=== PATIENT | female | born 1995 | race Caucasian/White ===

== ENCOUNTER 2019-02-23 19:52 | Emergency (ER) | payer BC, SELFPAY ==
[2019-02-23 20:08] VITALS: BP 89/63; PULSE 130; RESP 24; TEMP 37.1; O2SAT 98
[2019-02-23] MEDS: LORazepam 1 MG TAB PO (20:56)
[2019-02-23 21:06] LABS: Bilirubin Negative (Negative); Blood Trace-lysed (Negative); Clarity Clear (Clear); Glucose Negative (Negative); Ketones 15 mg/dL (Negative); Leukocyte Esterase Negative (Negative); Nitrite Negative (Negative); Urobilinogen 0.2 EU/dL (Up TO 0.2)
[2019-02-23 21:15] LABS: Bacteria Negative HPF (Negative); C & S Indicated? No; Casts Negative LPF (Negative); Crystals Negative HPF (Negative); Epithelial Cells Few HPF (Negative); Mucus Negative (Negative); Other Cells Negative (Negative)
[2019-02-23] MEDS: Ketorolac 15 MG/ML VIAL IVP (22:13)
[2019-02-23] MEDS: Normal Saline 1,000 ML 1000 ML IV (22:13)
[2019-02-23 22:21] LABS: Abs Immature Grans 0.03 k/cumm (0.0-0.09); Absolute Basophil Count 0.01 k/cumm (0.0-0.2); Absolute Monocyte Count 0.77 k/cumm (0.11-0.7); Absolute Neutrophil Count 11.17 k/cumm (1.2-6.7); Basophils % 0.1; HCT 33.5 % (36.0-46.0); HGB 11.9 g/dL (12.0-15.5); Immature Grans % 0.2; Lymphocytes % 4.8; Mean Corp. HGB Concentration 35.5 g/dL (32.0-36.0); Mean Corpuscular Hemoglobin 30.4 pg (27.0-33.0); Mean Corpuscular Volume 85.5 fL (80-95); Monocytes % 6.1; Neutrophils % 88.8; Platelet Count 207 x1000/uL (130-400); RBC 3.92 m/cumm (4.00-5.20); RBC Distribution Width 11.5 % (11.7-14.6); White Blood Cell Count 12.58 k/cumm (4.4-10.8)
--- NOTE | 2019-02-23 22:21 | ED.GENADUL_ITS ---
Discharge Plan Disposition Patient Disposition: HOME Condition: Good Discharge Details Chief Complaint: FlankPain Clinical Impression: Urolithiasis Primary Care Provider: Tika Aviles ED Provider: Marco Garrido Home Meds and New Rx's Prescriptions: New tamsulosin [Flomax] 0.4 mg capsule 0.4 mg PO DAILY Qty: 7 RF: 0 No Action ranitidine HCl [Zantac] 150 mg Tablet 150 mg PO DAILY RF: 0 guanfacine 1 mg Tablet 0.5 mg PO DAILY PRN PRNRF: 0 sertraline [Zoloft] 25 mg Tablet 25 mg PO DAILY RF: 0 ondansetron 4 mg Tablet,Disintegrating 4 mg PO Q6H RF: 0 Discharge Instructions Instructions: Kidney Stones (ED) Additional Instructions: You have a kidney stone, and it is at the very edge of the ureter, and will likely pass soon. Please use the strainer to collect the stone, your family doc tor can send it for evaluation afterwards. Please take the Flomax once every 24 hours as directed. If you have complete resolution of your pain stop taking the Flomax. Please take up to 500 mg of Tylenol every 6 hours and 400 mg of ibuprofen every 6 hours for pain. If you notice any worsening of your symptoms, or any new symptoms such as vomiting, diarrhea, fever, chills, shortness of breath, chest pain, numbness, weakness, or fainting , please return immediately to the emergency department for reevaluation. Please follow up with your primary care provider as soon as possible for reassessment and reevaluation. As always, it was a pleasure participating in your medical care today. Referrals: Tika Aviles [Primary Care Provider] - Medical Decision Making This is a pleasant 23-year-old female who presents today for evaluation of left-sided flank pain for the last 3 days with some mild associated urinary discomfort. She also unfortunately has a medical history of debilitating anxiety in the medical environment per the patient herself. She denies fever or chills, she denies any hematuria but unfortunately is on her period. She denies any pelvic pain or tenderness, she denies any history of STD or vaginal discharge. Physical exam demonstrates very mild left-sided upper flank tenderness, no lower abdominal tenderness, no pelvic tenderness. Signs and symptoms at this time are concerning for UTI, pyelonephritis, kidney stone. Signs and symptoms appear inconsistent at this time clinically with torsion, ov ana cyst, pelvic pathology. Initial urinalysis is unremarkable, which does elicit concern for other underlying pathology. We will get a CT scan for further assessment of potential renal stone. Currently the patient states that she has no pain whatsoever. She appears comfortable. 12:[address] scan results demonstrate evidence of a obstructing 3 mm calculus at the left ureter. No evidence of pyelonephritis, vital signs stable, laboratory work-up shows mild white count of 12, no bandemia. No fever. Urinalysis is negative for leuk esterase, nitrites, shows no evidence of infection. Renal function stable. Patient has been rehydrated, and has complete resolution of her pain and symptomatology after Toradol. She feels very well. At this time the patient signs and symptoms are clinically consistent with urolithiasis, and inconsistent with appendicitis, torsion, or other acute intra-abdominal pathology. As the kidney stone is at the distal ureter I feel he would likely pass. She is a candidate for Flomax. We will give the first dose here and a prescription for home use. As her pain is controlled now I feel that she can be safely discharged with NSAIDs for pain management. If you notice any worsening of your symptoms, or any new symptoms such as vomiting, diarrhea, fever, chills, shortness of breath, chest pain, numbness, weakness, or fainting , please return immediately to the emergency department for reevaluation. Please follow up with your primary care provider as soon as possible for reassessment and reevaluation. As always, it was a pleasure participating in your medical care today. FINDINGS: Liver: Normal. No mass. Gallbladder and bile ducts: Normal. No calcified stones. No ductal dilation. Pancreas: Normal. No ductal dilation. Spleen: Normal. No splenomegaly. Adrenals: Normal. No mass. Kidneys and ureters: Obstructing, 3 mm calculus in left ureter at ureterovesical junction. Mild left hydronephrosis and hydroureter. Lesion too small to characterize in lower pole, right kidney. Stomach and bowel: Unremarkable. No obstruction. No mucosal thickening. Appendix: No evidence of appendicitis. Intraperitoneal space: Unremarkable. No free air. No significant fluid collection. Vasculature: Unremarkable. No abdominal aortic aneurysm. Lymph nodes: Unremarkable. No enlarged lymph nodes. Bladder: Unremarkable as visualized. Reproductive: Unremarkable as visualized. Bones/joints: Unremarkable. No acute fracture. Soft tissues: Unremarkable. IMPRESSION: Obstructing calculus in distal left ureter. Thank you for allowing us to participate in the care of your patient. Dictated and Authenticated by: Jonel Zhang DO 02/24/2019 12:31 AM Eastern Time ([place] & [place]) HPI General Date/Time Provider Initiated Documentation: 02/23/19 20:33 . HPI Narrative: This is a 23-year-old female with a past medical history of debilitat ing anxiety in medical settings but no other significant past medical history who presents today for evaluation of left flank pain. Patient states that for the last 3 days she has had mild pain in her left flank, no pelvic pain, no suprapubic pain. She does have mild pain with urination, but she denies any fever or chills. She is currently on her. However aside for minimal cramps she denies any pain whatsoever in the pelvic region. She states that her period is actually starting to complete at this point. She has not taken any Tylenol or Motrin. She denies any history of kidney stones. She denies any history of nausea, vomiting, diarrhea, chest pain, or trauma. Additionally she denies any history of STDs, or vaginal discharge. She has no other complaints at this time. No other modifying factors. Related Data Home Medications Medication Instructions Recorded Confirmed guanfacine 0.5 mg PO DAILY PRN PRN 02/23/19 02/23/19 ondansetron 4 mg PO Q6H 02/23/19 02/23/19 ranitidine HCl [Zantac] 150 mg PO DAILY 02/23/19 02/23/19 sertraline [Zoloft] 25 mg PO DAILY 02/23/19 02/23/19 tamsulosin [Flomax] 0.4 mg PO DAILY #7 cap 02/24/19 Previous Rx's Medication Instructions Recorded tamsulosin [Flomax] 0.4 mg PO DAILY #7 cap 02/24/19 Allergies Allergy/AdvReac Type Severity Reaction Status Date / Time No Known Allergies Allergy Unverified 02/23/19 20:17 General Stated Complaint: FlankPain ROMAN: 3 Review of Systems Review of Systems ROS Unobtainable: All systems reviewed & are unremarkable except as noted in HPI and below PFSH Social History Smoking/Tobacco Use Status: Never Alcohol Intake: never Substance use type: does not use Do you feel safe at home: Yes Do you feel safe in your relationship?: Yes Exam Narrative Exam Narrative: 1.Const: Well-nourished, Well-developed, appearing stated age 2.Eyes: PERRL, no conjunctival injection, and symmetrical lids. 3.ENT: Atraumatic external nose and ears. Moist MM. Neck: Symmetric, trachea m idline, No thyromegaly. 4.CVS: +S1/S2, No murmurs or gallops. Peripheral pulses 2+ and equal in all extremities. Brisk capillary refill in all extremities. 5.RESP: Unlabored respiratory effort. Clear to auscultation bilaterally. No wheezes rales or rhonchi 6.GI: Soft, Nontender/Nondistended, No hepatosplenomegaly. No guarding or rebound. Mild left-sided flank CVA tenderness. Negative obturator and psoas sign, no pain at McBurney's point, negative Chakraborty sign, no lower abdominal pain, suprapubic pain, or pelvic pain on palpation. Negative heel strike test. 7.MSK: Normocephalic/Atraumatic, Extremities w/o deformity or ttp No cyanosis or clubbing, Normal movement of all extremities 8.Skin: Warm, Dry. No rashes or lesions. 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 Sensation grossly intact, no focal neurologic deficits. 10.Psych: (AAO) x3. Appropriate mood and affect Course Vital Signs Vital signs: Vital Signs Temperature 37.1 C 02/23/19 20:08 Pulse 130 H 02/23/19 20:08 Respiratory Rate 24 02/23/19 20:08 Blood Pressure 89/63 L 02/23/19 20:08 Pulse Oximetry 98 02/23/19 20:08 Temperature 37.1 C 02/23/19 20:08 Temperature Source Skin 02/23/19 20:08 Pulse 130 H 02/23/19 20:08 Respiratory Rate 24 02/23/19 20:08 Respiratory Effort Non-Labored 02/23/19 20:19 Blood Pressure 89/63 L 02/23/19 20:08 Blood Pressure Position Sitting 02/23/19 20:08 Pulse Oximetry 98 02/23/19 20:08 Oxygen Delivery Method Room Air 02/23/19 20:08 Oxygen Flow Rate 0 02/23/19 20:08 Pain Level 10 02/23/19 20:19 Lab/Test Results Lab/Test Results: Laboratory Tests Range/Units 02/23/19 21:03 Urine Color (Yellow) Yellow Urine Clarity (Clear) Clear Urine pH (5-8) 7.0 Ur Specific [place] (1.005-1.025) 1.020 Urine Protein (Negative) mg/dL Trace H Urine Ketones (Negative) mg/dL 15 H Urine Blood (Negative) Trace-lysed H Urine Nitrite (Negative) Negative Urine Bilirubin (Negative) Negative Urine Urobilinogen (Up TO 0.2) EU/dL 0.2 Ur Leukocyte Esterase (Negative) Negative Urine RBC (0-2) 10-20 H Urine WBC (0-5) HPF 3-5 Ur Epithelial Cells (Negative) HPF Few Urine Crystals (Negative) HPF Negative Urine Bacteria (Negative) HPF Negative Urine Casts (Negative) LPF Negative Urine Mucus (Negative) Negative Urine Other (Negative) Negative Ur Culture Indicated? No Urine Glucose (Negative) mg/dL Negative POC- Test(urine) Negative
[2019-02-23 22:33] LABS: Lactate 2.5 mmol/L (0.6-1.4)
[2019-02-23 22:52] LABS: ALT 18 U/L (14-59); AST 15 U/L (15-37); Albumin 4.1 g/dL (3.4-5.0); Alkaline Phosphatase 55 U/L (46-116); Anion Gap 14.9 mmol/L (3-11); BUN 20 mg/dL (7-18); Bilirubin, Total 0.5 mg/dL (0.2-1.0); CO2 21.1 mmol/L (21.0-32.0); CREATININE 0.96 mg/dL (0.55-1.02); Chloride 102 mmol/L (98-107); Glucose 127 mg/dL (70-100); Potassium 3.7 mmol/L (3.5-5.1); Sodium 138 mmol/L (136-145); Total Protein 7.8 g/dL (6.4-8.2)
--- NOTE | 2019-02-23 23:19 | DI.CT_ITS ---
EXAM: CT ABDOMEN PELVIS W CLINICAL HISTORY: left flank pain, eval stone vs acute process. TECHNIQUE: Imaging Protocol: Axial computed tomography images with coronal and sagittal reformatted images were created and reviewed CONTRAST MATERIAL: Intravenous: Omnipaque 350 Contrast volume:80 mL contrast route:IV - Oral: No COMPARISON: No exams were available for comparison FINDINGS: ABDOMEN: Lung Bases: Normal where visualized. Liver: Normal density. No measurable mass. Gallbladder and biliary tract: No radiodense calculus or dilation. Pancreas: Normal density, no abnormal calcifications or inflammatory process. Spleen: Normal. Kidneys: Normal size, contour and axis. There is a 3 mm calculus in the distal left ureter at the ure teral vesicle junction. There is mild hydronephrosis and hydroureter present. There is a 0.5 [address] nd hypodense cortical lesion in the lower pole of the right kidney. It is too small for further irving acterization. This likely reflects a cyst. No masses seen. Adrenal glands: No masses seen. Abdominal Aorta: Abdominal portion non-dilated. PELVIS: Bladder: Symmetric distention, no gross wall thickening. Bowel: No obstruction or bowel wall thickening. The appendix is normal in size without evidence of ad jacent mesenteric fat stranding or adjacent fluid collection. Peritoneal cavity: No ascites, collection or mesenteric inflammatory response. Bones: Within normal limits. Impression: 3 mm stone in the distal left ureter at the ureteral pelvic junction causing mild hydronephrosis. DATA REPOSITORY: All CT scans at this facility are submitted to the National Radiology Data Registry (NRDR) Dose Index Registry (DIR) with the [employer] (A[employer]). RADIATION OPTIMIZATION: All CT scans at this facility use at least one of these dose optimization te chniques: automated exposure control; mA and/or kV adjustment per patient size (includes targeted exa ms where dose is matched to clinical indication); or iterative reconstruction.
[2019-02-23] MEDS: Omnipaque 350 MG/ML 100 ML BTL IJ (23:29)
[2019-02-23 23:33] VITALS: PULSE 88; RESP 16; O2SAT 98
[2019-02-23 23:49] LABS: Lactate 1.4 mmol/L (0.6-1.4)
== END 2019-02-24 01:17 | disposition home or self-care (01) ==
PROVIDERS: Emergency Provider Student in an Organized Health Care Education/Training Program; PCP Nurse Practitioner Family
DX: N20.1 Calculus of ureter (principal)
CPT/HCPCS: 36415; 80053; 81025; 96361; 96374; 96376; 99285; 74177; 81003; 81015; 83605; 85025; 99284; J1885; J3490

== ENCOUNTER 2019-10-24 13:05 | Outpatient (CLI) | payer BC, SELFPAY ==
--- NOTE | 2019-10-24 | DI.RAD_ITS ---
EXAM: XR ANKLE RT COMPLETE CLINICAL HISTORY: LATERAL MALLEOLUS AND BONY POINT TENDERNESS, ? INVERSION INJURY. TECHNIQUE: 2D digital imaging was performed. COMPARISON: No exams were available for comparison FINDINGS: BONES: Normally mineralized. No evidence of fracture. No talar dome defect. JOINTS: The ankle mortise is normally aligned. SOFT TISSUE: Mild lateral soft tissue swelling. IMPRESSION: Unremarkable radiographs of the right ankle. DATA REPOSITORY: RADIATION DOSE DELIVERED:
== END 2019-10-24 13:25 ==
PROVIDERS: PCP Nurse Practitioner Family; Visit Provider Pediatrics
DX: M25.571 Pain in right ankle and joints of right foot (principal); M79.89 Other specified soft tissue disorders
CPT/HCPCS: 73610

== ENCOUNTER 2022-01-21 21:37 | Emergency (ER) | payer BC, SELFPAY ==
[2022-01-21 21:56] VITALS: BP 122/64; PULSE 113; RESP 16; TEMP 36.4; O2SAT 100
[2022-01-21 22:20] LABS: Bilirubin Negative (Negative); Blood Trace-intact (Negative); Clarity Clear (Clear); Glucose Negative (Negative); Ketones Negative (Negative); Leukocyte Esterase Negative (Negative); Nitrite Negative (Negative); Urobilinogen 0.2 EU/dL (Up TO 0.2)
[2022-01-21 22:27] LABS: Bacteria Few HPF (Negative); Crystals Negative HPF (Negative); Epithelial Cells Moderate HPF (Negative)
[2022-01-21 22:28] LABS: C & S Indicated? Yes; Mucus Negative (Negative)
[2022-01-21] MEDS: Mylanta Suspension 30 ML CUP PO (22:30)
[2022-01-21] MEDS: LORazepam 1 MG TAB PO (22:30)
--- NOTE | 2022-01-21 23:19 | ED.GENADUL_ITS ---
Discharge Plan Disposition Patient Disposition: HOME Condition: Stable Discharge Details Clinical Impression: Acute epigastric pain Primary Care Provider: Tika Aviles ED Provider: Ania Cramer Home Meds and New Rx's Prescriptions: New sucralfate [Carafate] 1 gram tablet 1 g PO BID Qty: 60 0RF Continued guanfacine 1 mg Tablet 0.5 mg PO DAILY PRN PRN sertraline [Zoloft] 25 mg Tablet 50 mg PO DAILY ondansetron 4 mg Tablet,Disintegrating 4 mg PO Q6H famotidine 20 mg Tablet 20 mg PO BID Discharge Instructions Instructions: Diet for Stomach Ulcers and Gastritis (ED), Abdominal Pain (ED) Additional Instructions: pepcid prilosec carafate stay away from fatty foods, spicy foods, caffeinated bevarages Follow-up for ultrasound I did recommend performing blood work, you have declined, should he have persistent pain I do recommend outpatient laboratory assessment Return with worsening pain, fever, chills, or should he have new or worsening complaints Stand Alone Forms: Work Release Discharge Data Discharge Date/Time-TO BE ENTERED AT DEPARTURE: 01/21/22 23:49 Medical Decision Making Patient have declined labs, she is aware that we cannot fully assess her without this She is leaving prior to her complete assessment She is agreeable to an outpatient ultrasound, I do not feel at this time clinically that she needs CT scan and that the risk of ordering CT with radiation outweighs benefit She is alert, oriented, capacity, she is discharged home in the care of her father She is given food options and work note Medical Records Medical records reviewed: Yes I reviewed the patient's medical records. Lab Data Lab results reviewed: Yes I reviewed the patient's lab results. HPI General Date/Time Provider Initiated Documentation: 01/21/22 22:00 . HPI Narrative: This 26-year-old female presents with reports of right upper quadrant and epigastric pain over the course of several days. She states she had some nausea, she vomited once on Tuesday but does not have any current nausea. She states that every time she has been consuming food which predominantly has been fatty food diet she does develop worsening pain. She denies any current discomfort. She denies any radiation. She denies any alcohol use. She denies any chance of . She denies any fever or chills. She states this is a kidney stones and states this pain is different. She has any blood in urine or dysuria. She had her. Denies any known additional exacerbating factors. Related Data Home Medications Medication Instructions Recorded Confirmed guanfacine 1 mg tablet 0.5 mg PO DAILY PRN PRN 02/23/19 01/22/22 ondansetron 4 mg disintegrating 4 mg PO Q6H 02/23/19 01/22/22 tablet sertraline 25 mg tablet (Zoloft) 50 mg PO DAILY 02/23/19 01/22/22 famotidine 20 mg tablet 20 mg PO BID 01/21/22 01/22/22 sucralfate 1 gram tablet (Carafate) 1 g PO BID #60 tabs 01/21/22 01/22/22 Previous Rx's Medication Instructions Recorded sucralfate 1 gram tablet (Carafate) 1 g PO BID #60 tabs 01/21/22 Allergies Allergy/AdvReac Type Severity Reaction Status Date / Time lactose intolerant AdvReac Uncoded 01/22/22 10:01 General Stated Complaint: Abd Prob ROMAN: 3 Review of Systems All systems reviewed & are unremarkable except as noted in HPI and below PFSH All Active Problems (Updated 01/22/22 @ 12:45 by Kirill Li NP) Acute epigastric pain (Acute) Ovarian cyst (Acute) Abdominal pain (Acute) Social History Smoking/Tobacco Use Status: Never Smoking risk assessment performed?: Yes Alcohol Intake: current Alcohol Intake frequency: a few times a month Substance use type: does not use Do you feel safe at home: Yes Do you feel safe in your relationship?: Yes Exam Const General: cooperative, comfortable and no acute distress Eyes Sclera: sclerae normal Resp Effort & Inspection: normal respiratory effort Auscultation: clear to auscultation bilaterally Cardio Rate: regular rate Rhythm: regular rhythm GI Inspection: normal to inspection Percussion: normal to percussion Other: No CVA tenderness, no right upper quadrant pain Skin General skin exam: no rashes or lesions noted Neuro General: patient alert and patient oriented x3 Course Vital Signs Vital signs: Vital Signs Temperature 36.4 C 01/21/22 21:56 Pulse 113 H 01/21/22 21:56 Respiratory Rate 16 01/21/22 21:56 Blood Pressure 122/64 01/21/22 21:56 Pulse Oximetry 100 01/21/22 21:56 Temperature 36.4 C 01/21/22 21:56 Temperature Source Temporal Artery Scan 01/21/22 21:56 Pulse 113 H 01/21/22 21:56 Respiratory Rate 16 01/21/22 21:56 Respiratory Effort 01/21/22 21:56 Blood Pressure 122/64 01/21/22 21:56 Blood Pressure Position Sitting 01/21/22 21:56 Pulse Oximetry 100 01/21/22 21:56 Oxygen Delivery Method Room Air 01/21/22 21:56 Oxygen Flow Rate 0 01/21/22 21:56 Pain Level 4 01/21/22 21:56 Lab/Test Results Lab/Test Results: 01/21/22 22:05 Urine - Reflex from Ua Urine Culture - Pending Laboratory Tests Range/Units 01/21/22 22:05 Urine Color (Yellow) Yellow Urine Clarity (Clear) Clear Urine pH (5-8) 6.0 Ur Specific [place] (1.005-1.025) 1.020 Urine Protein (Negative) mg/dL Negative Urine Ketones (Negative) mg/dL Negative Urine Blood (Negative) Trace-intact H Urine Nitrite (Negative) Negative Urine Bilirubin (Negative) Negative Urine Urobilinogen (Up TO 0.2) EU/dL 0.2 Ur Leukocyte Esterase (Negative) Negative Urine RBC (0-2) HPF 3-5 H Urine WBC (0-5) HPF 5-10 Ur Epithelial Cells (Negative) HPF Moderate Urine Crystals (Negative) HPF Negative Urine Bacteria (Negative) HPF Few Urine Mucus (Negative) Negative Ur Culture Indicated? Yes Urine Glucose (Negative) mg/dL Negative POC- Test(urine) Negative
--- NOTE | 2022-01-21 23:51 | NUR.NOTE ---
declines blood work and IV. wants to come back for an ultrasound in the am.Nursing Note:
== END 2022-01-21 23:49 | disposition home or self-care (01) ==
PROVIDERS: Emergency Provider Physician Assistant; PCP Nurse Practitioner Family
DX: R10.13 Epigastric pain (principal); R10.11 Right upper quadrant pain; R11.0 Nausea
CPT/HCPCS: 36415; 80053; 81025; 99283; 81003; 81015; 85025; 87086; 99284

== ENCOUNTER 2022-01-22 09:57 | Emergency (ER) | payer BC, SELFPAY ==
--- NOTE | 2022-01-22 10:04 | W.ED.GENAD ---
Discharge Plan Disposition Patient Disposition: HOME Condition: Improving Discharge Details Clinical Impression: Ovarian cyst, Abdominal pain Primary Care Provider: Tika Aviles ED Provider: Kirill Li Home Meds and New Rx's Prescriptions: Continued guanfacine 1 mg Tablet 0.5 mg PO DAILY PRN PRN sertraline [Zoloft] 25 mg Tablet 50 mg PO DAILY ondansetron 4 mg Tablet,Disintegrating 4 mg PO Q6H famotidine 20 mg Tablet 20 mg PO BID sucralfate [Carafate] 1 gram tablet 1 g PO BID Qty: 60 0RF Discharge Instructions Instructions: Ovarian Cyst (ED), Abdominal Pain (ED) Additional Instructions: If you have any new or significant worsening of symptoms feel free to return to the emergency department for reassessment. We did note an ovarian cyst. Follow-up has been placed for an appointment with [facility]. You may continue to take the prescribed meds given to last night during your emergency department visit along with [id number] pain medication as needed for any further discomfort Referrals: [facility] [Provider Group] (Call the office on Tuesday afternoon for arrangement of follow-up appointment.) Discharge Data Discharge Date/Time-TO BE ENTERED AT DEPARTURE: 01/22/22 12:50 Medical Decision Making Patient presenting to the emergency department for chief complaint of abdominal pain. Patient was seen yesterday evening and outpatient ultrasound was ordered the patient did not perform any labs at that time. Ultrasound results were reviewed and are unremarkable. On reassessment of patient's abdomen she did have tenderness to the right lower quadrant and right CVA tenderness. Patient does state history of kidney stones. On review of yesterday's labs patient did have blood in her urine. Discussed with patient further work-up which she was agreeable to at this time. Patient still cannot tolerate needles and is requesting to perform as much work-up as possible without blood work which I did inform her of risk versus benefit of possible other diagnoses that cannot be made without blood work. We will move forward with urinalysis and CT scan and hold on labs pending results. Reviewed urinalysis which continues to show blood and patient is not . CT imaging shows no appendicitis, no kidney stone, but does show a 1 cm ovarian cyst in the right lower quadrant. This may be the cause of patient's discomfort so we will refer patient to [facility] for recheck. Upon reassessment of patient to discuss results patient states that she is now pain-free and feeling better. After discussion of diagnosis and plan of care patient has no further needs, questions, or concerns and states clear understanding to return to the emergency department for any worsening symptoms. This documentation was generated using [employer] system, please disregard any oddities of phrase or misspellings. Medical Records Medical records reviewed: Yes I reviewed the patient's medical records. Imaging Data Radiologic Study: Imaging: Ultrasound Radiologist's impression: FINDINGS: There is no ascites evident. LIVER: There are no hepatic lesions evident nor dilatation of intrahepatic ducts. GALLBLADDER/BILIARY: There are no gallstones. No gallbladder wall edema nor pericholecystic fluid. The common hepatic duct isnot dilated, measuring 2mm at the level of tsering hepatis. PANCREAS: There is no evidence of pancreatic mass nor dilatation of the pancreatic duct. RIGHT KIDNEY:No evidence of solid mass, calculus, nor hydronephrosis. No cortical cysts evident. ABDOMINAL AORTA AND IVC: Visualized portions exhibit normal caliber. IMPRESSION: 1. No evidence of cholelithiasis nor dilatation of the biliary tree. 2. No other significant ultrasound findings in the right upper quadrant. 3. There is no ascites. Radiologic Study #2: Attestation: I personally reviewed and interpreted this imaging study as follows: Imaging: CT Scan Radiologist's impression: FINDINGS: VISUALIZED LUNG BASES: No nodules nor pleural effusions evident. ABDOMEN: There is no ascites. LIVER: There are no obvious focal hepatic lesions evident of this noninfused study. GALLBLADDER/BILIARY: No obvious gallbladder pathology. CBD is not dilated. PANCREAS: No evidence of pancreatic mass nor dilatation of the pancreatic duct. SPLEEN: Spleen is not enlarged. No obvious intrasplenic lesions. ADRENALS: There are no significant adrenal masses. KIDNEYS:Both kidneys appear unremarkable. No radiopaque calculi within the kidneys and no hydronephrosis nor hydroureter. No significant renal masses. ABDOMINAL AORTA: Abdominal aorta is not enlarged. LYMPH NODES: There is no retroperitoneal nor paraaortic adenopathy. ABDOMINAL WALL: No evidence of significant anterior abdominal wall nor inguinal hernia. GI: There is no evidence of bowel obstruction, free air, nor abscess. PELVIS: LYMPH NODES: There is no intrapelvic nor inguinal adenopathy. GI: No evidence of appendicitis.No evidence of sigmoid diverticulitis. URINARY BLADDER: No calculi nor obvious masses evident REPRODUCTIVE: Follicular cyst in the right ovary noted which measures 1 cm. Slightly smaller follicular cysts noted in the left ovary. No large ovarian masses. No extraovarian adnexal masses and no free fluid in the pelvis. OSSEOUS: No significant osseous lesions. SI joints unremarkable. No fractures. IMPRESSION: 1. No evidence of radiopaque renal calculi nor obstruction of the urinary tracts. 2. No evidence of acute appendicitis. No diverticulitis. 3. No ascites. HPI General Mode of arrival: ambulatory. Date/Time Provider Initiated Documentation: 01/22/22 09:58. Limitations to Documentation: no limitations. Information obtained by: patient and RN notes reviewed. History of Present Illness 26 year old F presents to the emergency department with the chief complaint of Here for results of gallbladder ultrasound, abdominal pain, described as moderate, with intensity rated at 4. Quality is described as aching, and is localized to the abdomen and right. Patient reports radiation to back. Patient started experiencing this day(s) (5) and it has been constant. No relieving factors improve symptom(s), Eating worsens symptoms . Patient notes no other symptoms.. Patient did receive the following treatments prior to arrival, NSAID Related Data Home Medications Medication Instructions Recorded Confirmed guanfacine 1 mg tablet 0.5 mg PO DAILY PRN PRN 02/23/19 01/22/22 ondansetron 4 mg disintegrating 4 mg PO Q6H 02/23/19 01/22/22 tablet sertraline 25 mg tablet (Zoloft) 50 mg PO DAILY 02/23/19 01/22/22 famotidine 20 mg tablet 20 mg PO BID 01/21/22 01/22/22 sucralfate 1 gram tablet (Carafate) 1 g PO BID #60 tabs 01/21/22 01/22/22 Previous Rx's Medication Instructions Recorded sucralfate 1 gram tablet (Carafate) 1 g PO BID #60 tabs 01/21/22 Allergies Allergy/AdvReac Type Severity Reaction Status Date / Time lactose intolerant AdvReac Uncoded 01/22/22 10:01 General Stated Complaint: Recheck ROMAN: 5 Review of Systems Constitutional Constitutional: Denies chills, Denies fever(s) and Reports poor appetite Cardiovascular Cardiovascular: Denies chest pain and Denies dyspnea Respiratory Respiratory: Denies cough and Denies dyspnea Gastrointestinal Gastrointestinal: Reports as per HPI, Reports abdominal pain, Denies melena, Denies hematochezia, Denies change in bowel habits, Denies constipation, Denies diarrhea, Reports nausea, Reports vomiting and Denies hematemesis Genitourinary Genitourinary: Denies hematuria, Denies difficulty voiding, Denies dysuria, Denies urinary incontinence, Denies urinary hesitancy, Reports urinary urgency and Denies vaginal discharge Musculoskeletal Musculoskeletal: Reports back pain Integumentary/Breasts Skin/Breast: Denies rash Psychiatric Psychiatric: Reports anxiety Endocrine Endocrine: Reports polyuria PFSH All Active Problems (Updated 01/22/22 @ 12:45 by Kirill Li NP) Acute epigastric pain (Acute) Ovarian cyst (Acute) Abdominal pain (Acute) Social History Smoking/Tobacco Use Status: Never Smoking risk assessment performed?: Yes Alcohol Intake: current Alcohol Intake frequency: a few times a month Substance use type: does not use Do you feel safe at home: Yes Do you feel safe in your relationship?: Yes Exam Const General: cooperative Orientation: alert, awake and oriented x3 Resp Effort & Inspection: normal respiratory effort and able to speak in complete sentences Auscultation: clear to auscultation bilaterally Cardio Rate: regular rate Rhythm: regular rhythm Heart Sounds: S1 normal and S2 normal GI Palpation: soft, no hepatosplenomegaly, not firm, no guarding, no masses, no pulsatile masses, not rigid, no splenomegaly and tender Auscultation: normal bowel sounds Back/Spine/Pelvis Back: no CVA tenderness Neuro General: patient alert, patient awake, patient oriented x3, gait normal and moves all extremities
[2022-01-22 10:05] VITALS: BP 118/78; PULSE 86; RESP 14; TEMP 36.5; O2SAT 99
--- NOTE | 2022-01-22 10:45 | DI.CT_ITS ---
Exam(s) CT RENAL COLIC WO EXAM: CT RENAL COLIC WO CLINICAL HISTORY: Right flank and RLQ pain. TECHNIQUE: Imaging Protocol: Axial computed tomography images with coronal and sagittal reformatted images were created and reviewed CONTRAST MATERIAL: Intravenous: none Oral: None COMPARISON: CT CT ABDOMEN PELVIS W from 02/23/2019 FINDINGS: VISUALIZED LUNG BASES: No nodules nor pleural effusions evident. ABDOMEN: There is no ascites. LIVER: There are no obvious focal hepatic lesions evident of this noninfused study. GALLBLADDER/BILIARY: No obvious gallbladder pathology. CBD is not dilated. PANCREAS: No evidence of pancreatic mass nor dilatation of the pancreatic duct. SPLEEN: Spleen is not enlarged. No obvious intrasplenic lesions. ADRENALS: There are no significant adrenal masses. KIDNEYS:Both kidneys appear unremarkable. No radiopaque calculi within the kidneys and no hydronephr osis nor hydroureter. No significant renal masses. ABDOMINAL AORTA: Abdominal aorta is not enlarged. LYMPH NODES: There is no retroperitoneal nor paraaortic adenopathy. ABDOMINAL WALL: No evidence of significant anterior abdominal wall nor inguinal hernia. GI: There is no evidence of bowel obstruction, free air, nor abscess. PELVIS: LYMPH NODES: There is no intrapelvic nor inguinal adenopathy. GI: No evidence of appendicitis.No evidence of sigmoid diverticulitis. URINARY BLADDER: No calculi nor obvious masses evident REPRODUCTIVE: Follicular cyst in the right ovary noted which measures 1 cm. Slightly smaller follicu lar cysts noted in the left ovary. No large ovarian masses. No extraovarian adnexal masses and no f ree fluid in the pelvis. OSSEOUS: No significant osseous lesions. SI joints unremarkable. No fractures. IMPRESSION: 1. No evidence of radiopaque renal calculi nor obstruction of the urinary tracts. 2. No evidence of acute appendicitis. No diverticulitis. 3. No ascites. RADIATION DOSE DELIVERED: 560.48mGy.cm Total DLP DATA REPOSITORY: All CT scans at this facility are submitted to the National Radiology Data Registry (NRDR) Dose Index Registry (DIR) with the [employer] ([employer]). RADIATION OPTIMIZATION: All CT scans at this facility use at least one of these dose optimization te chniques: automated exposure control; mA and/or kV adjustment per patient size (includes targeted exa ms where dose is matched to clinical indication); or iterative reconstruction.
[2022-01-22 10:56] LABS: Bilirubin Negative (Negative); Blood Small (Negative); Clarity Clear (Clear); Glucose Negative (Negative); Ketones Negative (Negative); Leukocyte Esterase Negative (Negative); Nitrite Negative (Negative); Urobilinogen 0.2 EU/dL (Up TO 0.2); pH 8.5 (5-8)
[2022-01-22 11:07] LABS: Bacteria Negative HPF (Negative); C & S Indicated? No; Casts Negative LPF (Negative); Crystals Negative HPF (Negative); Epithelial Cells Few HPF (Negative); Mucus Negative (Negative)
--- NOTE | 2022-01-22 12:46 | NUR.NOTE ---
Nursing Note: PT info faxed to [facility] for follow up in 1-2 weeks for ovarian cysts. [place], ED
== END 2022-01-22 12:50 | disposition home or self-care (01) ==
PROVIDERS: Emergency Provider Nurse Practitioner Family; PCP Nurse Practitioner Family
DX: N83.291 Other ovarian cyst, right side (principal); R10.31 Right lower quadrant pain
CPT/HCPCS: 81025; 99284; 74176; 81003; 81015; 99283

== ENCOUNTER 2025-05-07 15:42 | Outpatient (REF) | payer BC, SELFPAY | END 2025-05-07 15:43 | disposition home or self-care (01) | LOC: LBN 15:42 | PROVIDERS: PCP Internal Medicine; Visit Provider Physician Assistant | DX: N39.0 Urinary tract infection, site not specified (principal) | CPT/HCPCS: 87086 ==